=== PATIENT | female | born 1975 | race Two or more races ===

== ENCOUNTER 2020-03-26 12:54 | Emergency (ER) | payer OTHER ==
[~2020-03-26] VITALS: Ht 167.6 cm; Wt 52.9 kg
[2020-03-26 18:14] VITALS: BP 119/78
== END 2020-03-26 18:21 | disposition home or self-care (01) ==
LOC: ER 12:54 → EDBD 12:54 → ER 18:21
DX: M25.561 Pain in right knee (principal); M25.562 Pain in left knee; V49.9XXA Car occupant (driver) (passenger) injured in unspecified traffic accident, initial encounter; Y93.89 Activity, other specified; Y92.89 Other specified places as the place of occurrence of the external cause; Y99.8 Other external cause status
CPT/HCPCS: 70450; 73562